=== PATIENT | female | born 1990 | race Caucasian/White ===

== ENCOUNTER 2017-04-25 13:50 | Emergency (ER) | payer SELFPAY ==
[2017-04-25 14:30] VITALS: BP 136/70
--- NOTE | 2017-04-25 15:05 | RAD ---
INDICATION: Right knee pain COMPARISON: [id number] TECHNIQUE: AP, lateral, tunnel, and sunrise views were obtained. FINDINGS: The bony structures, joint spaces, and soft tissues are normal for age. IMPRESSION: NEGATIVE EXAMINATION.
--- NOTE | 2017-04-25 15:10 | UC ---
Knee Pain HPI - HPI Summary HPI Summary: 26 YO WF presents with right knee pain that started yesterday. She tells me that she was at work and planted and twisted her right knee when moving. Had immediate pain in her knee, but was able to continue working. Today is much more painful. Has been taking tylenol for her pain with mild relief. Is able to bear weight and ambulate without assistance with mild-moderate pain. Denies numbness, tingling, or hx of knee issues. - History of Current Complaint Chief Complaint: UCLowerExtremity Stated Complaint: KNEE PAIN Time Seen by Provider: 04/25/17 15:10 Hx Obtained From: Patient Hx Last Menstrual Period: 04/03/2017 Onset/Duration: Sudden Onset Severity Initially: Severe Severity Currently: Severe Pain Intensity: 8 Pain Scale Used: 0-10 Numeric Character: Aching, Stiffness Aggravating Factor(s): Movement, Weight Bearing Alleviating Factor(s): Rest, Position Able to Bear Weight: Yes - Allergies/Home Medications Allergies/Adverse Reactions: Allergies Allergy/AdvReac Type Severity Reaction Status Date / Time clarithromycin Allergy Anaphylatic Verified 04/25/17 14:21 Shock erythromycin base Allergy Hives Verified 04/25/17 14:21 meloxicam Allergy Hives Verified 04/25/17 14:21 sulfamethoxazole Allergy Swelling Verified 04/25/17 14:21 [From Bactrim] trimethoprim [From Bactrim] Allergy Swelling Verified 04/25/17 14:21 Home Medications: Home Medications Cetirizine HCl [All Day Allergy] 10 mg PO BID 04/25/17 [History Confirmed ] Fluoxetine HCl [Prozac] 20 mg PO DAILY 04/25/17 [History Confirmed 04/25/17] raNITIdine HCl [Ranitidine HCl] 300 mg PO BID 04/25/17 [History Confirmed ] PMH/Surg Hx/FS Hx/Imm Hx Previously Healthy: Yes Psychological History: Anxiety, Depression - Surgical History Surgical History: None - Family History Known Family History: Positive: None - Social History Occupation: Employed Full-time Lives: With Family Alcohol Use: None Substance Use Type: None Smoking Status (MU): Never Smoked Tobacco Review of Systems Constitutional: Negative Skin: Negative Respiratory: Negative Cardiovascular: Negative Gastrointestinal: Negative Neurovascular: Negative Musculoskeletal: Decreased ROM - Right knee, Other: - Right knee pain Neurological: Negative Psychological: Negative All Other Systems Reviewed And Are Negative: Yes Physical Exam Triage Information Reviewed: Yes Appearance: Well-Appearing, No Pain Distress, Well-Nourished Vital Signs: Initial Vital Signs Temp 98.9 F 04/25/17 14:18 Pulse 89 04/25/17 14:18 Resp 18 04/25/17 14:18 BP 136/70 04/25/17 14:18 Pulse Ox 98 04/25/17 14:18 Vital Signs Reviewed: Yes Neck: Positive: Supple, Nontender Respiratory: Positive: Lungs clear, Normal breath sounds, No respiratory distress Cardiovascular: Positive: RRR, No Murmur, Pulses Normal Musculoskeletal: Positive: Strength Intact - Right LE, No Edema, ROM Limited @ - Right knee flexion due to pain. Flexion toe 60deg before pain, Other: - Mild TTP over posterior right knee and medial joint space. No edema or obvious bony deformities. No patella apprehension. Negative Richelle, A/P drawer, Crow, and varus/valgus stress. Neurological: Positive: Alert, Other: - Sensations intact right LE Psychological: Positive: Age Appropriate Behavior Skin: Negative: rashes, significant lesion(s) Knee Pain Course/Dx - Course Course Of Treatment: XR: IMPRESSION: NEGATIVE EXAMINATION. I suspect this is a knee sprain vs meniscus injury. Recommended conservative treatment with continued tylenol, KAYLA wrap, and RICE. F/u with ortho if symptoms worsen or persist - Differential Dx/Diagnosis Provider Diagnoses: Right knee pain Discharge - Discharge Plan Condition: Stable Disposition: HOME Patient Education Materials: Knee Sprain (DC) Forms: *Work Release Referrals: Jaye Engle MD [Primary Care Provider] - Hung Waggoner MD [Medical Doctor] - If Needed Additional Instructions: If you develop a fever, shortness of breath, chest pain, new or worsening symptoms - please call your PCP or go to the ED. 1) Rest, Ice, and elevate your knee as much as possible over the next 24-48 hours 2) May take tylenol OTC for the pain 3) If your symptoms worsen or persist greater than 7 days - please [facility] at the number below for a follow up appointment.
== END 2017-04-25 15:20 | disposition home or self-care (01) ==
LOC: UCEAST 13:50
DX: M25.561 Pain in right knee (principal); F41.9 Anxiety disorder, unspecified; F32.9 Major depressive disorder, single episode, unspecified; Z88.1 Allergy status to other antibiotic agents; Z88.2 Allergy status to sulfonamides; Z88.8 Allergy status to other drugs, medicaments and biological substances
CPT/HCPCS: 99212; G0463

== ENCOUNTER 2018-08-25 10:17 | Emergency (ER) | payer MEDICAID, OTHER ==
--- NOTE | 2018-08-25 10:34 | ED ---
Lower Extremity - HPI Summary HPI Summary: This pt is a 28 y/o female presenting [place] [facility] c/o right knee pain s/p injury today while at work. Pt reports she has history of previous right knee injury. She states while at work today someone dropped food on the floor and she slipped and fell after she stepped on it. Denies any bruising. Pt notes her "tendon came out of" her right knee and she put it back in. Her right knee pain is aggravated with ambulation and it is alleviated with rest. Denies any other injuries from fall. Denies headache, back pain, neck pain. - History of Current Complaint Stated Complaint: RT KNEE PAIN PER PT Time Seen by Provider: 08/25/18 10:27 Hx Obtained From: Patient Hx Last Menstrual Period: 04/03/2017 Mechanism Of Injury: Fall From A Standing Position Onset of Pain: Immediate Onset/Duration: Still Present Severity Currently: Severe Pain Intensity: 10 Pain Scale Used: 0-10 Numeric Timing: Constant Location: Is Discrete @ - right knee Character Of Pain: Aching Associated Signs And Symptoms: Positive: Knee Pain - right. Negative: Redness, Bruising, Fever, Weakness Aggravating Factor(s): Ambulation Alleviating Factor(s): Rest Related History: Occupational Injury - Allergies/Home Medications Allergies/Adverse Reactions: Allergies Allergy/AdvReac Type Severity Reaction Status Date / Time clarithromycin Allergy Anaphylatic Verified 08/25/18 10:42 Shock erythromycin base Allergy Hives Verified 08/25/18 10:42 meloxicam Allergy Hives Verified 08/25/18 10:42 sulfamethoxazole Allergy Swelling Verified 08/25/18 10:42 [From Bactrim] trimethoprim [From Bactrim] Allergy Swelling Verified 08/25/18 10:42 PMH/Surg Hx/FS Hx/Imm Hx Endocrine/Hematology History: Denies: Hx Diabetes, Hx Systemic Lupus Erythematosus, Hx Thyroid Disease Cardiovascular History: Denies: Hx Hypertension Respiratory History: Denies: Hx Asthma, Hx Chronic Obstructive Pulmonary Disease (COPD) GI History: Denies: Hx Ulcer History: Denies: Hx Renal Disease Musculoskeletal History: Reports: Other Musculoskeletal History - Right knee sprain Psychiatric History: Reports: Hx Anxiety, Hx Eating Disorder, Hx Depression Denies: Hx of Violent Episodes Against Others Infectious Disease History: Denies: Hx Clostridium Difficile, Hx Hepatitis, Hx Human Immunodeficiency Virus (HIV) - Family History Known Family History: Negative: Cardiac Disease, Hypertension, Diabetes - Social History Alcohol Use: None Substance Use Type: Reports: None Smoking Status (MU): Never Smoked Tobacco Review of Systems Negative: Fever, Chills ENT: Negative Cardiovascular: Negative Musculoskeletal: Other - POSITIVE: right knee pain Negative: Other - NEGATIVE: back pain, neck pain Negative: Bruising Negative: Headache All Other Systems Reviewed And Are Negative: Yes Physical Exam - Summary Physical Exam Summary: VITAL SIGNS: Reviewed. GENERAL: Patient is a well-developed and nourished female who is lying comfortable in the stretcher. Patient is not in any acute respiratory distress. HEAD AND FACE: No signs of trauma. No ecchymosis, hematomas or skull depressions. No sinus tenderness. EYES: PERRLA, EOMI x 2, No injected conjunctiva, no nystagmus. EARS: Hearing grossly intact. Ear canals and tympanic membranes are within normal limits. MOUTH: Oropharynx within normal limits. NECK: Supple, trachea is midline, no adenopathy, no JVD, no carotid bruit, no c- spine tenderness, neck with full ROM. CHEST: Symmetric, no tenderness at palpation LUNGS: Clear to auscultation bilaterally. No wheezing or crackles. CVS: Regular rate and rhythm, S1 and S2 present, no murmurs or gallops appreciated. ABDOMEN: Soft, non-tender. No signs of distention. No rebound, no guarding, and no masses palpated. Bowel sounds are normal. EXTREMITIES: Right lower extremity: no bruising on right knee, no deformity of right knee, no ecchymosis of right knee, decreased ROM secondary to pain of right knee. NEURO: Alert and oriented x 3. No acute neurological deficits. Speech is normal and follows commands. SKIN: Dry and warm Triage Information Reviewed: Yes Vital Signs On Initial Exam: Initial Vitals Temp Pulse Resp BP Pulse Ox 97.7 F 81 18 146/92 99 08/25/18 10:36 08/25/18 10:36 08/25/18 10:36 08/25/18 10:36 08/25/18 10:36 Vital Signs Reviewed: Yes Diagnostics - Laboratory Lab Statement: Any lab studies that have been ordered have been reviewed, and results considered in the medical decision making process. - Radiology Right knee XR Radiology Interpretation Completed By: Radiologist Summary of Radiographic Findings: IMPRESSION: No fracture of the right knee is noted. Dr. Chen has reviewed this report. Re-Evaluation - Re-Evaluation First Eval Re-Evaluation Time: 11:28 Comment: Reviewed XR results with pt. She will be discharged home with follow up from orthopedics. Lower Extremity Course/Dx - Course Assessment/Plan: Pt is a 28 y/o female who presents with right knee pain s/p injury today while at work. Pt reports she has history of previous right knee injury. She states while at work today someone dropped food on the floor and she slipped and fell after she stepped on it. Denies any bruising. Pt notes her "tendon came out of" her right knee and she put it back in. Her right knee pain is aggravated with ambulation and it is alleviated with rest. Denies any other injuries from fall. Denies headache, back pain, neck pain. Right knee XR is negative for fracture. She was given a knee immobilizer. Pt will be discharged home with follow up from orthopedics in 2-3 days. She was given instruction to return to the ED for any worsening or new symptoms. - Diagnoses Provider Diagnoses: Right knee pain Discharge - Sign-Out/Discharge Documenting (check all that apply): Patient Departure - Discharge home Patient Received Moderate/Deep Sedation with Procedure: No - Discharge Plan Condition: Stable Disposition: HOME Patient Education Materials: Knee Pain (ED) Referrals: Jaye Engle MD [Primary Care Provider] - Eric Rebolledo MD [Medical Doctor] - Additional Instructions: FOLLOW UP WITH DR. REBOLLEDO, ORTHOPEDIST, IN 2-3 DAYS. RETURN TO THE ED FOR ANY NEW OR WORSENING SYMPTOMS. - Attestation Statements Document Initiated by Scribe: Yes Documenting Scribe: Cynthia Thibodeaux Provider For Whom Scribe is Documenting (Include Credential): Paul Chen MD Scribe Attestation: Cynthia White, scribed for Paul Chen MD on 08/25/18 at 1141. Status of Scribe Document: Ready
[2018-08-25 11:46] VITALS: BP 139/83
== END 2018-08-25 11:44 | disposition home or self-care (01) ==
LOC: ED 10:17
DX: M25.561 Pain in right knee (principal); W01.0XXA Fall on same level from slipping, tripping and stumbling without subsequent striking against object, initial encounter; Y99.0 Civilian activity done for income or pay
CPT/HCPCS: 99282

== ENCOUNTER 2019-06-13 12:18 | Emergency (ER) | payer MEDICARE, MEDICAID ==
[2019-06-13] MEDS ORDERED: fentaNYL* 50 MCG/ML 2 ML VIAL (100 MCG VIAL) IV SLOW PU ONE (13:02)
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
[2019-06-13 13:29] LABS: ABS Lymphocytes 1.6 10^3/ul (1.0-4.8); ABS Monocytes 0.5 10^3/ul (0-0.8); ABS Neutrophils 7.2 10^3/ul (1.5-7.7); Eosinophil % 0.5 %; Hematocrit 41 % (35-47); Hemoglobin 14.2 g/dL (12.0-16.0); Lymphocyte % 16.9 %; Mean Corpuscular HGB Conc 35 g/dL (31-36); Mean Corpuscular Hemoglobin 30 pg (27-31); Mean Corpuscular Volume 87 fL (80-97); Mean Platelet Volume 7.2 fL (7.4-10.4); Platelet Count 349 10^3/uL (150-450); Red Cell Distribution Width 13 % (10-15); White Blood Count 9.3 10^3/uL (3.5-10.8)
[2019-06-13 13:44] LABS: Albumin 4.1 g/dL (3.2-5.2); Albumin/Globulin Ratio 1.6 (1-3); BUN/Creatinine Ratio 22.7 (8-20); Calcium 9.4 mg/dL (8.6-10.3); EGFR African American 111.3 (>60); Globulin 2.6 g/dL (2-4); Potassium 3.9 mmol/L (3.5-5.0); Total Bilirubin 0.4 mg/dL (0.2-1.0); Total Protein 6.7 g/dL (6.4-8.9)
[2019-06-13] MEDS ORDERED: Iohexol 300* (CONTRAST) 10 ML SDV IV ONE (13:55)
[2019-06-13 14:00] VITALS: BP 123/90
== END 2019-06-13 15:20 | disposition home or self-care (01) ==
LOC: ED 12:18
DX: M54.2 Cervicalgia (principal); R10.9 Unspecified abdominal pain; H53.8 Other visual disturbances; R68.84 Jaw pain; F41.9 Anxiety disorder, unspecified; F32.9 Major depressive disorder, single episode, unspecified; Y09 Assault by unspecified means; K21.9 Gastro-esophageal reflux disease without esophagitis; Z88.2 Allergy status to sulfonamides
CPT/HCPCS: 36415; 71260; 72125; 74177; 80053; 85025; 96374; 99283; J3010; Q9967

== ENCOUNTER 2024-02-01 18:44 | Inpatient (IN) ==
[2024-02-01 20:01] LABS: ABS Lymphocytes 1.7 10^3/uL (1.0-4.8); ABS Monocytes 0.6 10^3/uL (0.0-0.9); ABS Neutrophils 9.9 10^3/uL (1.5-7.6); ABS Nucleated RBC 0.01 10^3/ul; Eosinophil % 0.3 %; Hematocrit 42.3 % (35-45); Hemoglobin 14.6 g/dL (11.5-14.3); Lymphocyte % 13.8 %; Mean Corpuscular Hemoglobin 29.9 pg (27-33); Mean Corpuscular Hgb Conc 34.5 g/dL (31-36); Mean Corpuscular Volume 86.6 fL (80-97); Mean Platelet Volume 7.2 fL (7.5-11.2); Nucleated Red Blood Cells % 0.1 %/100WBC (0.0-0.8); Platelet Count 386 10^3/uL (150-450); Red Blood Count 4.88 10^6/uL (3.63-4.92); Red Cell Distribution Width 13.5 % (12-17); White Blood Count 12.3 10^3/uL (3.8-11.8)
[2024-02-01 20:13] LABS: Urine Benzodiazepine Screen None Detected (None Detect); Urine Cannabinoids Screen None Detected (None Detect); Urine Opiates Screen None Detected (None Detect)
[2024-02-01 20:24] LABS: ALT 22 U/L (7-52); AST 18 U/L (13-39); Albumin 4.3 g/dL (3.2-5.2); Albumin/Globulin Ratio 2.2 (1-3); Alcohol, S < 13 mg/dL (<13); Alkaline Phosphatase 56 U/L (35-149); Anion Gap 11 mmol/L (2-16); Blood Urea Nitrogen 12 mg/dL (6-24); CO2 Carbon Dioxide 21 mmol/L (22-32); Calcium 9.7 mg/dL (8.6-10.3); Chloride 106 mmol/L (101-111); Creatinine, Serum 0.79 mg/dL (0.51-0.95); Glucose 117 mg/dL (70-100); Potassium 3.4 mmol/L (3.5-5.0); Sodium 138 mmol/L (135-145); Total Bilirubin 0.5 mg/dL (0.2-1.0); Total Protein 6.3 g/dL (6.4-8.9); eGFR CKD-EPI 101.2 (>60)
[2024-02-01 20:29] LABS: HCG Pregnancy < 0.60 mIU/mL
[2024-02-01] MEDS: Albuterol HFA INHALER 8 gm MDI INH ONE (20:31)
[2024-02-01 20:38] LABS: TSH Ultra Thyroid Stim Horm 1.67 mcIU/mL (0.34-5.60)
[2024-02-02] MEDS: Paliperidone SUSTENNA 234 MG/1.5 ML IM ONE (12:31)
[2024-02-03 08:39] LABS: HDL Cholesterol 31.9 mg/dL
[2024-02-03] MEDS ORDERED: OLANZapine 5 mg TAB *ODT PO PRN (09:45)
[2024-02-09] MEDS: Paliperidone SUSTENNA 234 MG/1.5 ML IM ONE (16:24)
[2024-02-10] MEDS: Al Hydrox/Mg Hydrox/Simet LIQ 30 ML UDC PO PRN (16:39)
[2024-02-11] MEDS: Ondansetron ODT 4 mg TAB 4 MG TAB SL PRN (13:03)
[2024-02-18 11:02] VITALS: BP 117/76
== END 2024-02-18 13:20 | disposition home or self-care (01) | DRG 885 ==
LOC: ED 18:44 → EDHOLD 02-02 10:05 → BSU 02-02 10:05
PROVIDERS: ADMIT Psychiatry & Neurology Psychiatry; ATTEND Student in an Organized Health Care Education/Training Program